=== PATIENT | female | born 1995 | race Caucasian/White ===

== ENCOUNTER 2022-06-15 02:27 | Emergency (ER) | payer OTHER, SELFPAY ==
[2022-06-15 02:27] VITALS: BP 126/100; PULSE 94; RESP 18; TEMP 36.8; O2SAT 100
--- NOTE | 2022-06-15 02:44 | ED.ALLEREA ---
HPI - Allergic Reaction General Chief complaint: Allergic Reaction Stated complaint: RASH Time Seen by Provider: 06/15/22 02:31 Source: patient and RN notes reviewed Limitations: no limitations History of Present Illness complaint: allergic reaction Onset (ago): hour(s) (8) Exposure: unknown Symptoms: rash, itching and other (rash of both hands, both upper extremities, neck and face, mildly red and pruritic) Severity: mild Treatment prior to arrival: benadryl Previous Allergic Reaction History: other (see nurses notes.) Related Data Home Medications Medication Instructions Recorded Confirmed sertraline 50 mg tablet 50 mg PO DIRECTED 06/15/22 06/15/22 Allergies Allergy/AdvReac Type Severity Reaction Status Date / Time Pertussis Vaccines Allergy Hives Verified 06/15/22 02:30 strawberry Allergy Hives Verified 06/15/22 02:31 Review of Systems Review of Systems: All systems reviewed & are unremarkable except as noted in HPI and below Constitutional: Constitutional: Reports no additional constitutional complaints Eyes: Eyes: Reports no additional eye complaints ENT: Reports system reviewed and no additional complaints, except as documented Cardiovascular: Cardiovascular: Reports no additional cardiovascular complaints Respiratory: Respiratory: Reports no additional respiratory complaints Gastrointestinal: Gastrointestinal: Reports no additional gastrointestinal complaints Genitourinary: Genitourinary: Reports no additional female genitourinary complaints Musculoskeletal: Musculoskeletal: Reports no additional musculoskeletal complaints Comments: pruritic rash Integumentary/Breasts: Skin/Breast: Reports system reviewed and no additional complaints, except as docu Neurologic: Reports system reviewed and no additional complaints, except as documented Psychiatric: Psychiatric: Reports no additional psychiatric complaints Endocrine: Endocrine: Reports no additional endocrine complaints Hematologic/Lymphatic: Hematologic/Lymphatic: Reports no additional hematologic/lymphatic complaints Allergic/Immunologic: Allergic/Immunologic: Reports no additional allergic/immunologic complaints PMFSH Past Medical History Medical History Allergic Non Hodgkin's lymphoma Pulmonic stenosis Uses contraceptive implant for control Family History Family History Mother No problems noted. Father No problems noted. Social History Social History Additional smoking assessment comments: does not smoke Alcohol use details: does not drink alcohol Substance use: never Exam Const: General: healthy appearing and no acute distress Nutritional Appearance: well nourished Orientation/consciousness: patient oriented x3 Limitations: no limitations HENMT: Head: normal to inspection Ears: external ears normal, TM's normal bilaterally and EAC's normal General nose exam: Normal external nose present and Normal nares present Face and sinus: normal facial exam and sinuses nontender Mouth: Yes Normal oral and palatal mucosa present and Yes moist mucous membranes Teeth and gingiva: dentition normal Throat: posterior oropharynx normal Eyes: Conjunctivae: conjunctivae normal Pupils: Equal, round and reactive pupils present EOM: EOMs intact bilaterally Neck: Neck: normal visual inspection, no lymphadenopathy and no meningeal signs Chest: Chest palpation & inspection: normal inspection of the chest Resp: Effort & Inspection: normal respiratory effort Auscultation: clear to auscultation bilaterally Cardio: Rate: regular rate Rhythm: regular rhythm GI: GI Palp: Yes Soft to palpation and No Tenderness to palpation present (GI) Auscultation: normal bowel sounds : General: Yes bladder normal to palpation and Yes no CVA tenderness Bimanual exam- vagina & uterus: bladder normal to palpatio
[2022-06-15] MEDS: diphenhydrAMINE HCl CAP 25 MG CAPSULE PO (02:49)
[2022-06-15] MEDS: methylPREDNISolone SOD SUCC 125 MG VIAL IM (02:53)
== END 2022-06-15 03:15 | disposition home or self-care (01) ==
PROVIDERS: Emergency Provider Emergency Medicine
DX: T78.40XA Allergy, unspecified, initial encounter (principal)
CPT/HCPCS: 96372; 99283; A9270; J2930

== ENCOUNTER 2024-03-27 21:02 | Emergency (ER) | payer OTHER, SELFPAY ==
[2024-03-27 21:05] VITALS: BP 137/83; PULSE 108; RESP 18; TEMP 37.1; O2SAT 99
--- NOTE | 2024-03-27 21:57 | ED.EXTPRO ---
HPI - Extremity Problem General Chief complaint: Extremity Problem,Nontraumatic Stated complaint: skin issue Time Seen by Provider: 03/27/24 21:20 Source: patient Mode of arrival: ambulatory Limitations: no limitations History of Present Illness HPI Narrative: patient is a 20-year-old female with a significant past medical history presents today with a rash. She has a rash on her left upper extremity above the elbow. I It has been there since last night when she watch the lytes. She did not come in contact with anything outside. 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 She says the rash is itchy and is here with Erythematous and macular. she has tried OTC medications with no relief. MD Complaint: other ( Extremity rash) Onset (ago): day(s) Pain Consistency: constant Location: left Severity scale (1-10): 2 Quality: burning Radiation: none Relieving factors: nothing Exacerbating factors: nothing Associated symptoms: denies other symptoms Related Data Home Medications Medication Instructions Recorded Confirmed sertraline 50 mg tablet 50 mg PO DIRECTED 06/15/22 03/27/24 alprazolam 0.5 mg tablet 0.5 mg PO BID anxiety 03/27/24 03/27/24 Allergies Allergy/AdvReac Type Severity Reaction Status Date / Time Pertussis Vaccines Allergy Hives Verified 03/27/24 21:15 strawberry Allergy Hives Verified 03/27/24 21:15 Review of Systems Review of Systems: All systems reviewed & are unremarkable except as noted in HPI and below Constitutional: Constitutional: Reports no additional constitutional complaints Eyes: Eyes: Reports no additional eye complaints ENT: Reports system reviewed and no additional complaints, except as documented Cardiovascular: Cardiovascular: Reports no additional cardiovascular complaints Respiratory: Respiratory: Reports no additional respiratory complaints Gastrointestinal: Gastrointestinal: Reports no additional gastrointestinal complaints Genitourinary: Genitourinary: Reports no additional female genitourinary complaints Musculoskeletal: Musculoskeletal: Reports no additional musculoskeletal complaints Integumentary/Breasts: Skin/Breast: Reports as per HPI, Reports pruritus, Reports erythema and Reports rash Neurologic: Reports system reviewed and no additional complaints, except as documented Psychiatric: Psychiatric: Reports no additional psychiatric complaints Endocrine: Endocrine: Reports no additional endocrine complaints Hematologic/Lymphatic: Hematologic/Lymphatic: Reports no additional hematologic/lymphatic complaints Allergic/Immunologic: Allergic/Immunologic: Reports no additional allergic/immunologic complaints PMFSH Past Medical History Medical History Allergic Non Hodgkin's lymphoma Pulmonic stenosis Uses contraceptive implant for control Family History Family History Mother No problems noted. Father No problems noted. Social History Social History Additional smoking assessment comments: does not smoke Alcohol use details: does not drink alcohol Substance use: never Exam Const: General: healthy appearing Nutritional Appearance: well nourished Orientation/consciousness: patient oriented x3 HENMT: Head: normal to inspection Ears: external ears normal Face/Nose/Sinus: Normal external nose present Face and sinus: normal facial exam Eyes: Conjunctivae: conjunctivae normal Pupils: Equal, round and reactive pupils present EOM: EOMs intact bilaterally Neck: Neck: normal visual inspection Chest: Chest palpation & inspection: normal inspection of the chest Resp: Effort & Inspection: normal respiratory effort Auscultation: clear to auscultation bilaterally Cardio: Rate: regular rate Rhythm: regular rhythm GI: GI Palp: Yes Soft to palpation Back/Spine/Pelvis: Back: no CVA tenderness Skin: Ge
[2024-03-27] MEDS: dexAMETHasone SOD PHOS INJ 10 MG/ML 1 ML VIAL IM (22:16)
[2024-03-27 22:20] VITALS: BP 128/72; PULSE 98; RESP 18; O2SAT 100
== END 2024-03-27 22:20 | disposition home or self-care (01) ==
PROVIDERS: Emergency Provider Family Medicine
DX: L03.90 Cellulitis, unspecified (principal); L25.9 Unspecified contact dermatitis, unspecified cause; Z85.72 Personal history of non-Hodgkin lymphomas
CPT/HCPCS: 96372; 99283; J1100

== ENCOUNTER 2025-06-17 23:28 | Emergency (ER) | payer OTHER, SELFPAY ==
[2025-06-17 23:28] VITALS: BP 134/94; PULSE 90; RESP 17; TEMP 36.7; O2SAT 100
--- OUTSIDE RECORDS SUMMARY | 2025-06-17 23:30 | XMS_ITS | Clinical Summary ---
Author Organization [facility] Address [address] [place] [address] Care Team Providers Care Ep Specialist Name Role Phone Shira Kumari MD Primary Care Provider [phone] Allergies Active Allergy Reactions Criticality Noted Date Comments Phenylephrine Angioedema 06/29/2019 Oxymetazoline Angioedema 06/29/2019 Pseudoephedrine Angioedema 06/29/2019 Medications vitamin, low iron, 27-0.8 MG tablet Take 1 tablet by mouth daily. Active Active Problems Problem Noted Date Diagnosed Date Left shoulder pain 02/06/2023 Multiparous 06/30/2019 Encounter for elective induction of labor ([facility]/ [facility]) 06/29/2019 Family History Medical History Relation Comments Heart Attack Mother Relation Status Comments Brother Alive Father Alive Mother Alive Social History Tobacco Use Types Packs/Day Years Used Date Smoking Tobacco: Never Smokeless Tobacco: Never Alcohol Use Standard Drinks/Week Comments No 0 (1 standard drink = 0.6 oz pur e alcohol) AUDIT-C Answer Date Recorded Frequency of Alcohol Consumption Never 06/29/2019 Average Number of Drinks Not on file 019 Frequency of Binge Drinking Not on file 06/17 Comments No Sex and Gender Information Value Date Recorded Sex Assigned at Not on file Legal Sex Female 5:55 PM [employer] Gender Identity Not on file Sexual Orientation Straight 06/29/2019 9: 26 PM CDT Last Filed Vital Signs Vital Sign Reading Time Taken Comments Blood Pressure 136/83 07/04/2019 1:00 PM CDT Pulse 104 07/04/2019 1:00 PM CDT Temperature 36.2 C (97.2 F) 07/04/2019 1:00 PM CDT Respiratory Rate 18 07/04/2019 1:00 PM CDT Oxygen Saturation 99% 06/30/2019 8:23 PM CDT Inhaled Oxygen Concentration - - Weight 67.1 kg (148 lb) 06/29/2019 8:55 PM CDT Height 170.2 cm (5' 7) 06/29/2019 8:55 PM CDT Body Mass Index 23.18 06/29/2019 8:55 PM CDT Plan of Treatment Health Maintenance Due Date Last Done Comments Cervical Cancer Screening Pap Smear (Age 30 to 64) Every 3 Years 1995 Annual Physical 1998 DTaP, Tdap and Td Vaccines (2 - Tdap) 08/15/2010 08/14/2010, 05/10/1996, 1995, Additional history exists HPV Vaccines (3 - 3-dose series) 02/11/2011 10/09/2010, 08/14/2010 Hepatitis C 2013 COVID-19 Vaccine ( season) 2024 Cervical Cancer Screening Pap with HPV Testing (Age 30 to 64) Every 5 Years 2025 Cervical Cancer Screening with HPV 2025 Hepatitis B Vaccines Completed 05/10/1996, 1995, 1995, Additional history exists Meningococcal Vaccine Aged Out 08/14/2010 No magdalene arsenio eligible based on patient's age to complete this topic Meningococcal B Vaccine Aged Out No l onger eligible based on patient's age to complete this topic Pneumococcal Vaccine: Pediatrics (0 to 5 Years) and At-Risk Patients (6 to 49 Years) Aged Out No longer eligible based on patient's age to complete this topic RSV Immunizations Under 20 Months Aged Out No longer eligible based on patient's age to complete this topic Insurance [employer] Advance Directives * Full Code (Latest Code Status on File) Date Activated Date Inactivated Comments 06/29/2019 8:41 PM 07/01/2019 7:57 AM Care Teams Ep Specialist Relationship Specialty Start Date End Date Shira Kumari MD [address] [place] [address] PCP - General FAMILY PRACTICE 01/20/23
--- NOTE | 2025-06-17 23:45 | ED.DENTAL ---
HPI - Dental/Oral General Chief complaint: Dental/Oral Stated complaint: dental pain Time Seen by Provider: 06/17/25 23:45 Source: patient Mode of arrival: ambulatory Limitations: no limitations History of Present Illness HPI Narrative: Patient is a 30-year-old female with right ear pain and right dental pain for the past day. Patient had trouble sleeping due to pain this evening. Patient cannot get into the dentist until next month. She had associated nausea and vomiting with her severe pain and some anxiety. MD Complaint: tooth pain Location: Tooth # ( Thirty-two) Onset (ago): day(s) ( 1) Duration: constant Severity: moderate Severity scale (1-10): 7 Relieving factors: nothing Exacerbating factors: chewing, cold, heat and drinking fluids Context: history of dental caries and trauma (mechanism) Associated symptoms: ear pain ( right) Treatment prior to arrival: oral analgesic Related Data Home Medications ?Medication ?Instructions ?Recorded ?Confirmed ?Last Taken ?Type sertraline 50 mg tablet 50 mg PO DIRECTED 06/15/22 03/27/24 Unknown History alprazolam 0.5 mg tablet 0.5 mg PO BID anxiety 03/27/24 03/27/24 Unknown History Allergies Allergy/AdvReac Type Severity Reaction Status Date / Time Pertussis Vaccines Allergy Hives Verified 06/17/25 23:41 strawberry Allergy Hives Verified 06/17/25 23:41 Review of Systems Review of Systems: All systems reviewed & are unremarkable except as noted in HPI and below Constitutional: Constitutional: Reports no additional constitutional complaints Eyes: Eyes: Reports no additional eye complaints ENT: Reports system reviewed and no additional complaints, except as documented Cardiovascular: Cardiovascular: Reports no additional cardiovascular complaints Respiratory: Respiratory: Reports no additional respiratory complaints Gastrointestinal: Gastrointestinal: Reports no additional gastrointestinal complaints Genitourinary: Genitourinary: Reports no additional female genitourinary complaints Musculoskeletal: Musculoskeletal: Reports no additional musculoskeletal complaints Integumentary/Breasts: Skin/Breast: Reports system reviewed and no additional complaints, except as docu Neurologic: Reports system reviewed and no additional complaints, except as documented Psychiatric: Psychiatric: Reports no additional psychiatric complaints Endocrine: Endocrine: Reports no additional endocrine complaints Hematologic/Lymphatic: Hematologic/Lymphatic: Reports no additional hematologic/lymphatic complaints Allergic/Immunologic: Allergic/Immunologic: Reports no additional allergic/immunologic complaints COUNT INCLUDES THE [facility] Past Medical History Medical History Allergic Uses contraceptive implant for control Non Hodgkin's lymphoma Pulmonic stenosis Family History Family History Mother No problems noted. Father No problems noted. Social History Social History Additional smoking assessment comments: does not smoke Alcohol use details: does not drink alcohol Substance use: never Exam Const: General: healthy appearing Nutritional Appearance: well nourished Orientation/consciousness: patient oriented x3 HENMT: Head: normal to inspection Ears: external ears normal and Abnormal EAC present ( right ear) erythema and EAC tenderness Face/Nose/Sinus: Normal external nose present Face and sinus: normal facial exam Teeth and gingiva: abnormal tooth and associated gingiva ( Number 32 has a fracture and loss of half the top of the tooth) Throat: posterior oropharynx normal Eyes: Conjunctivae: conjunctivae normal Pupils: Equal, round and reactive pupils present EOM: EOMs intact bilaterally Neck: Neck: normal visual inspection Chest: Chest palpation & inspection: normal inspection of the chest Resp: Effort & Inspection: normal respiratory effort and not labored Auscultation: clear to auscultation bilaterally Cardio: Rate: regular rate Rhythm: regular rhythm Heart sounds: no murmurs GI: Inspection: non-distended GI Palp: Yes Soft to palpation and No Tenderness to palpation present (GI) Auscultation: normal bowel sounds : General: Yes bladder normal to palpation Back/Spine/Pelvis: Back: no CVA tenderness Skin: General skin exam: normal color Rashes: no rashes Wounds: no wounds Neuro: General: patient oriented x3, moves all extremities and no meningeal signs Extrem: General: normal to inspection Psych: Mental Status: mental status grossly normal Affect: normal affect Attitude: cooperative Course Vital Signs Vital signs: Vital Signs Temperature 36.7 C 06/17/25 23:28 Pulse Rate 90 06/17/25 23:28 Respiratory Rate 17 06/17/25 23:28 Blood Pressure 134/94 H 06/17/25 23:28 Pulse Oximetry 100 06/17/25 23:28 Oxygen Delivery Room Air 06/17/25 23:28 Temperature 36.7 C 06/17/25 23:28 Pulse Rate 90 06/17/25 23:28 Respiratory Rate 17 06/17/25 23:28 Blood Pressure 134/94 H 06/17/25 23:28 Pulse Oximetry 100 06/17/25 23:28 Oxygen Delivery Room Air 06/17/25 23:28 MDM - Dental/Oral MDM Narrative Medical decision making narrative: patient is a 30-year-old female with right ear pain and right dental pain over the past day. We will do a mixture of Toradol and Ultram with Augmentin and Cipro otic. Discharge Plan Discharge Clinical Impression: Mandible pain Otitis externa Qualifiers: Otitis externa type: unspecified type Chronicity: acute Laterality: right Qualified Code(s): H60.501 - Unspecified acute noninfective otitis externa, right ear Patient Disposition: Home Condition: Stable Instructions: Antibiotic Form, Ear Infection (AC), Toothache (ED) Additional Instructions: please see the dentist as soon as possible. Complete all medication given to treat both problems. Patient Language: Maori Prescriptions: New amoxicillin-pot clavulanate 875-125 mg tablet 1 tablet PO BID 10 Days Qty: 20 0RF tramadol 50 mg tablet 50 mg PO Q8H PRN (Reason: pain) Qty: 20 0RF Rx Instructions: 1-2 tabs per dose [id number]-FT 3.5-10,000-1 mg/mL-unit/mL-% drops,suspension 3 drp RIGHT EAR TID 7 Days Qty: 10 0RF No Action alprazolam 0.5 mg tablet 0.5 mg PO BID triamcinolone acetonide 0.1 % lotion 1 applic topical BID Qty: 60 1RF methylprednisolone [Medrol (Fredrick)] 4 mg tablets,dose pack See Rx Instructions .ROUTE .COMPLEX Qty: 21 0RF Rx Instructions: orally per package directions sertraline 50 mg tablet 50 mg PO DIRECTED methylprednisolone [Medrol (Fredrick)] 4 mg tablets,dose pack See Rx Instructions .ROUTE .COMPLEX Qty: 21 0RF Rx Instructions: orally per package directions diphenhydramine HCl [Benadryl] 25 mg capsule 50 mg PO TID PRN (Reason: allergic reaction) Qty: 20 0RF Follow-up/Referrals: Shira Kumari MD [Primary Care Provider] - Stand Alone Forms: Work/School Release IP
[2025-06-18] MEDS: NEOMYCIN/POLYMYXIN/HYDROCORT OT SUSP 10 ML BTL (*BKC) 3 DROP RIGHT EAR
[2025-06-18] MEDS: KETOROLAC (*BKC) 60 MG/2 ML VIAL IM (00:01)
[2025-06-18 00:44] VITALS: BP 132/84; PULSE 89; RESP 16; O2SAT 100
== END 2025-06-18 00:46 | disposition home or self-care (01) ==
LOC: CHSED 06-18 00:30
PROVIDERS: Emergency Provider Emergency Medicine; PCP Family Medicine
DX: H60.501 Unspecified acute noninfective otitis externa, right ear (principal); R68.84 Jaw pain
CPT/HCPCS: 96372; 99283; A9270; J1885

== ENCOUNTER 2025-07-06 06:35 | Emergency (ER) | payer OTHER, SELFPAY ==
--- NOTE | ~2025-07-06 | XR_ITS ---
Portable chest x-ray Comparison: 09/21/2011 Clinical History: Syncope Findings: Lungs are clear, without focal consolidation or pleural effusion. Cardiomediastinal silhouette is stable. Bones and soft tissues are unremarkable. Impression: Normal chest. Reviewed, dictated and finalized at location . Impression: Normal chest.
--- NOTE | ~2025-07-06 | CT_ITS ---
Non-contrast Head CT History: Syncope Technique: Axial non-contrast imaging of the brain was performed. Dose reduction technique was used on this scan by utilizing automated exposure control and iterative reconstruction technique. The dose-length product (DLP) was 681.00 mGy-cm. Findings: There is no evidence of intracranial hemorrhage, mass lesion, or acute infarct. Brain parenchyma appears normal. The ventricles and subarachnoid spaces are normal in size. The calvarium appears normal. The visualized paranasal sinuses and mastoid air cells are clear. Impression: No significant abnormality seen. Reviewed, dictated and finalized at location . Impression: No significant abnormality seen.
[2025-07-06 06:35] VITALS: BP 124/85; PULSE 109; RESP 20; TEMP 36.4; O2SAT 98
--- NOTE | 2025-07-06 06:37 | ECG_ITS ---
Test Date: 2025-07-06 06:48:57 Measurements Intervals [place] Rate: 100 P: 69 MO: 150 QRS: 72 QRSD: 82 T: 59 QT: 330 QTc: 427 Interpretive Statements SINUS TACHYCARDIA BORDERLINE ECG No previous ECG available for comparison Electronically Signed On 07-06-2025 08:12:28 CDT by Rafy Oakley D.O.
--- NOTE | 2025-07-06 07:14 | ED.SYNCOPE ---
HPI - Syncope General Chief Complaint: Syncope Stated Complaint: Passed Out Time Seen by Provider: 07/06/25 06:50 Source: patient Mode of arrival: ambulatory Limitations: no limitations History of Present Illness HPI narrative: 30-year-old female with a history of non-Hodgkin's lymphoma status post chemo 7 years ago, [place] neck stenosis, recent ear infection, metromenorrhagia status post removal of her contraceptive implant yesterday presents to the ED with -- syncopal spell this morning. She got up from bed and felt dizzy and lightheaded. She walked to an adjoining room and slumped to the ground. She laid down for 30 seconds and subsequently her significant other raised her up. She continued to feel dizzy. No nausea vomiting. No chest pain shortness of breath. No focal neuro deficits. No urinary incontinence. No prior episodes. -- hit the back of her head when she fell down. No obvious trauma noted. -- She explains her dizziness as vertigo. She feels the room around her is pending. Had a syncopal spell at age 16. MD complaint: loss of consciousness Onset (ago): minute(s) ( 30 seconds) Duration of episode: 30 -: second(s) Prodromal symptoms: lightheaded Witnessed: Yes - by Bystander Context: getting out of bed Injuries sustained associated with event: head ( hit the back of her head.) Current symptoms: lightheaded History: previous syncopal episode and history of CAD ( History of pulmonary stenosis.) Treatments prior to arrival: none Related Data Home Medications ?Medication ?Instructions ?Recorded ?Confirmed ?Last Taken ?Type sertraline 50 mg tablet 50 mg PO DIRECTED 06/15/22 03/27/24 07/05/25 History alprazolam 0.5 mg tablet 0.5 mg PO BID anxiety 03/27/24 03/27/24 Unknown History Allergies Allergy/AdvReac Type Severity Reaction Status Date / Time Pertussis Vaccines Allergy Hives Verified 07/06/25 07:50 strawberry Allergy Hives Verified 07/06/25 07:50 Review of Systems Constitutional: Constitutional: Reports as per HPI and Reports no additional constitutional complaints Eyes: Eyes: Reports as per HPI and Reports no additional eye complaints ENT: Reports system reviewed and no additional complaints, except as documented and Reports as per HPI Comments: Ear infection 2 weeks ago Cardiovascular: Cardiovascular: Reports as per HPI and Reports no additional cardiovascular complaints Respiratory: Respiratory: Reports as per HPI and Reports no additional respiratory complaints Gastrointestinal: Gastrointestinal: Reports as per HPI and Reports no additional gastrointestinal complaints Genitourinary: Genitourinary: Reports no additional female genitourinary complaints and Reports as per HPI Comments: currently on her menstrual period Musculoskeletal: Musculoskeletal: Reports no additional musculoskeletal complaints and Reports as per HPI Integumentary/Breasts: Skin/Breast: Reports system reviewed and no additional complaints, except as docu and Reports as per HPI Neurologic: Reports system reviewed and no additional complaints, except as documented and Reports as per HPI Psychiatric: Psychiatric: Reports no additional psychiatric complaints, Reports as per HPI and Reports anxiety Endocrine: Endocrine: Reports no additional endocrine complaints and Reports as per HPI Hematologic/Lymphatic: Hematologic/Lymphatic: Reports no additional hematologic/lymphatic complaints and Reports as per HPI Allergic/Immunologic: Allergic/Immunologic: Reports no additional allergic/immunologic complaints and Reports as per HPI [facility] Past Medical History Medical History Allergic Uses contraceptive implant for control Non Hodgkin's lymphoma Pulmonic stenosis Family History Family History Mother No problems noted. Father No problems noted. Social History Social History Additional smoking assessment comments: does not smoke Alcohol use details: does not drink alcohol Substance use: never Exam Narrative: not orthostatic Const: General: no acute distress Orientation/consciousness: patient oriented x3 Limitations: no limitations HENMT: Head: normal to inspection Ears: external ears normal Face/Nose/Sinus: Normal external nose present Face and sinus: normal facial exam Mouth: Yes Normal oral and palatal mucosa present Throat: posterior oropharynx normal Eyes: Conjunctivae: conjunctivae normal Pupils: Equal, round and reactive pupils present EOM: EOMs intact bilaterally Direct Ophthalmoscopy: no photophobia Neck: Neck: normal visual inspection, no lymphadenopathy and no meningeal signs Chest: Chest palpation & inspection: normal inspection of the chest Resp: Effort & Inspection: normal respiratory effort Auscultation: clear to auscultation bilaterally Cardio: Rate: regular rate Rhythm: regular rhythm GI: Auscultation: normal bowel sounds Other: no tenderness/rigidity /rebound : General: Yes no CVA tenderness Back/Spine/Pelvis: Back: no CVA tenderness Other: no spinal tenderness noted. Skin: General skin exam: normal color Rashes: no rashes Wounds: no wounds Neuro: General: patient oriented x3, moves all extremities, no meningeal signs, no focal motor deficits and CN's II-XI intact bilaterally Cranial nerves: Yes Nystagmus not present Speech: normal speech Gait exam (Neuro): Normal gait present Extrem: General: normal to inspection and no clubbing, cyanosis or edema Psych: Mental Status: mental status grossly normal Affect: normal affect Attitude: cooperative Course Course Emergency Course: Syncope-- Patient stood up following which she became lightheaded and passed out. As soon as she fell to the floor she regained consciousness. No chest pain / shortness of breath/ focal neuro deficits/ incontinence was noted. EKG was unremarkable without any John arrhythmias or tachyarrhythmias. CT of the head did not show any acute findings. This is consistent with vasovagal syncope Vital Signs Vital signs: Vital Signs Temperature 36.4 C 07/06/25 06:35 Pulse Rate 109 H 07/06/25 06:35 Respiratory Rate 20 07/06/25 06:35 Blood Pressure 124/85 07/06/25 06:35 Pulse Oximetry 98 07/06/25 06:35 Oxygen Delivery Room Air 07/06/25 06:35 Temperature 36.4 C 07/06/25 06:35 Pulse Rate 114 H 07/06/25 07:20 Respiratory Rate 20 07/06/25 06:35 Blood Pressure 116/79 07/06/25 07:20 Pulse Oximetry 98 07/06/25 06:35 Oxygen Delivery Room Air 07/06/25 06:35 MDM - Syncope MDM Narrative Medical decision making narrative: vasovagal syncope Differential Diagnosis Differential diagnosis: Likely syncope due to orthostatic hypotension Medical Records Attestation: I reviewed the patient's medical records. Lab Data Attestation: I reviewed the patient's lab results. 07/06/25 07:22 07/06/25 07:22 Labs: Lab Results 07/06/25 07/06/25 07/06/25 Range/Units 07:18 07:22 07:42 WBC Cancelled 7.0 RBC Cancelled 3.86 L Hgb Cancelled 11.0 L Hct Cancelled 35.3 MCV Cancelled 91.5 MCH Cancelled 28.5 MCHC Cancelled 31.2 L RDW Cancelled 14.1 Plt Count Cancelled 176 MPV Cancelled 11.0 Immature Gran % (Auto) Cancelled 0.3 H Neut % (Auto) Cancelled 61.7 Lymph % (Auto) Cancelled 23.9 [place] % (Auto) Cancelled 6.7 Eos % (Auto) Cancelled 6.7 H Baso % (Auto) Cancelled 0.7 Lymph # (Auto) Cancelled 1.67 [place] # (Auto) Cancelled 0.47 Eos # (Auto) Cancelled 0.47 Baso # (Auto) Cancelled 0.05 Abs Immat Gran (auto) Cancelled 0.02 H Absolute Neuts (auto) Cancelled 4.32 Absolute Nucleated RBC Cancelled 0.00 Nucleated RBC % Cancelled 0.0 % Immature Plt Fraction Cancelled Sodium 144 (137-145) mmol/L Potassium 5.0 (3.4-5.0) mmol/L Chloride 106 (98-107) mmol/L Carbon Dioxide 28 (22-30) mmol/L Anion Gap 10 (4-12) mmol/L BUN 13 (7-17) mg/dL Creatinine 0.82 (0.7-1.0) mg/dL Estim Creat Clear Calc 72 ml/min Estimated GFR > 60 (59 - ) Glucose 96 (65-110) mg/dL Calculated Osmolality 298 H (285-295) mOsm/kg Lactic Acid 1.6 (0.4-2.0) mmol/L Calcium 9.4 (8.4-10.2) mg/dL Total Bilirubin 0.7 (0.2-1.3) mg/dL AST 22 (14-36) U/L ALT 19 (6-35) U/L Alkaline Phosphatase 54 (38-126) U/L Troponin I < 0.012 (0.000-0.034) ng/mL Total Protein 7.6 (6.3-8.2) g/dL Albumin 4.7 (3.5-5.1) g/dL Lipase 91 (23-300) U/L Urine Color Yellow (Yellow) Urine Appearance Clear (Clear) Urine pH 7.0 (5.0-8.0) Ur Specific [place] 1.010 (1.010-1.020) Urine Protein Negative (Negative) Urine Glucose (UA) Negative (Negative) Urine Ketones Trace H (Negative) Ur Blood (Man) Trace-intact H (Negative) Urine Nitrate Negative (Negative) Urine Bilirubin Negative (Negative) Urine Urobilinogen 1.0 (0.2-1.0) mg/dL Leukocyte Esterase Rfl Negative (Negative) CAROL ANN/UL Urine Test Negative ECG Data EKG #1: ECG completion date: 07/06/25 ECG completion time: 06:48 Interpretation: sinus tachycardia with a heart rate of 100. Normal axis. No ST elevation noted. Discharge Plan Discharge Clinical Impression: Vasovagal syncope Patient Disposition: Home Condition: Stable Instructions: Antibiotic Form, Syncope (ED) Patient Language: Tong[place] Prescriptions: No Action alprazolam 0.5 mg tablet 0.5 mg PO BID sertraline 50 mg tablet 50 mg PO DIRECTED Follow-up/Referrals: Shira Kumari MD [Primary Care Provider, [facility]] Time of Disposition: 08:36
[2025-07-06 07:19] VITALS: BP 120/80; PULSE 98
[2025-07-06 07:20] VITALS: BP 116/79; BP 124/81; PULSE 110; PULSE 114
[2025-07-06 07:26] LABS: Hematocrit 35.3 % (35.0-49.0); Hemoglobin 11.0 g/dL (12.0-15.0); Immature Granulocyte Percent A 0.3 % (0.0-0.0); Lymphocytes Absolute Auto 1.67 K/mm3 (1.10-4.50); Mean Corpuscular HGB Conc 31.2 g/dL (32-36); Mean Corpuscular Hemoglobin 28.5 pg (27.0-31.0); Mean Corpuscular Volume 91.5 fL (78.0-102.0); Nucleated Red Blood Cells Absolute Auto 0.00 K/mm3 (0.00-0.00); Nucleated Red Blood Cells Perc 0.0 % (0-0.0); Platelet Count Result 176 K/mm3 (150-420); Red Blood Count 3.86 M/mm3 (4.20-5.40); White Blood Count 7.0 K/mm3 (4.8-10.8)
[2025-07-06 07:38] LABS: Alanine Aminotransferase 19 U/L (6-35); Albumin Level 4.7 g/dL (3.5-5.1); Alkaline Phosphatase 54 U/L (38-126); Anion Gap 10 mmol/L (4-12); Aspartate Amino Transferase 22 U/L (14-36); Bilirubin,Total 0.7 mg/dL (0.2-1.3); Blood Urea Nitrogen 13 mg/dL (7-17); Calcium 9.4 mg/dL (8.4-10.2); Carbon Dioxide 28 mmol/L (22-30); Chloride 106 mmol/L (98-107); Estimated CRCL calculation 72 ml/min; Estimated Glomerular Filt Rate > 60; Glucose 96 mg/dL (65-110); Osmolality Calculated 298 mOsm/kg (285-295); Potassium 5.0 mmol/L (3.4-5.0); Sodium 144 mmol/L (137-145); Total Protein 7.6 g/dL (6.3-8.2)
[2025-07-06 07:47] LABS: Lipase 91 U/L (23-300)
[2025-07-06 07:49] LABS: Add Urine Microscopic? NO; Appearance Urine Clear (Clear); Glucose Urine UA Negative (Negative); Leukocyte Esterase Ur Negative LEU/UL (Negative); Nitrate Urine Negative (Negative); Specific Grav Ur 1.010 (1.010-1.020)
[2025-07-06 07:51] LABS: Pregnancy On Board Control Positive
[2025-07-06 08:00] LABS: Troponin I < 0.012 ng/mL (0.000-0.034)
[2025-07-06 08:30] VITALS: BP 122/78; PULSE 105; RESP 20; TEMP 36.7; O2SAT 98
== END 2025-07-06 08:49 | disposition home or self-care (01) ==
PROVIDERS: Emergency Medicine; Emergency Provider Internal Medicine Critical Care Medicine; PCP Family Medicine
DX: R55 Syncope and collapse (principal); I25.10 Atherosclerotic heart disease of native coronary artery without angina pectoris; C85.90 Non-Hodgkin lymphoma, unspecified, unspecified site
CPT/HCPCS: 36415; 70450; 71045; 80053; 81003; 81025; 83605; 83690; 84484; 85025; 93005; 99284